=== PATIENT | male | born 1985 | race Two or more races ===

== ENCOUNTER 2019-12-06 14:20 | Outpatient (CLI) | payer OTHER | END 2019-12-06 14:24 | disposition home or self-care (01) | LOC: CERTIFICAD 14:20 | PROVIDERS: ATTEND Family Medicine | DX: Z11.1 Encounter for screening for respiratory tuberculosis (principal) ==

== ENCOUNTER → 2019-12-27 17:51 | Outpatient (CLI) | payer OTHER | END | disposition home or self-care (01) | LOC: RAD 17:51 | PROVIDERS: ATTEND Anesthesiology | DX: M25.512 Pain in left shoulder (principal) ==

== ENCOUNTER 2020-01-11 16:17 | Outpatient (CLI) | payer OTHER | END 2020-01-11 18:00 | disposition home or self-care (01) | LOC: PPH VACUNA 16:17 | DX: Z23 Encounter for immunization (principal) ==

== ENCOUNTER 2021-12-10 11:00 | Outpatient (CLI) | payer OTHER | END 2021-12-10 11:01 | disposition home or self-care (01) | LOC: LAB 11:00 | PROVIDERS: ATTEND General Practice | DX: E55.9 Vitamin D deficiency, unspecified (principal); E78.00 Pure hypercholesterolemia, unspecified; D50.9 Iron deficiency anemia, unspecified; D50.8 Other iron deficiency anemias; E08.9 Diabetes mellitus due to underlying condition without complications; E03.9 Hypothyroidism, unspecified; E56.9 Vitamin deficiency, unspecified; E63.9 Nutritional deficiency, unspecified; E11.9 Type 2 diabetes mellitus without complications; R53.81 Other malaise; N39.9 Disorder of urinary system, unspecified ==

== ENCOUNTER 2021-12-30 08:00 | Outpatient (CLI) | payer OTHER | END 2021-12-30 08:05 | disposition home or self-care (01) | LOC: PPH VACUNA 08:00 | PROVIDERS: ATTEND Emergency Medicine Pediatric Emergency Medicine | DX: Z23 Encounter for immunization (principal) ==

== ENCOUNTER 2023-01-04 09:50 | Outpatient (CLI) | payer OTHER | END 2023-01-04 10:05 | disposition home or self-care (01) | LOC: PPH VACUNA 09:50 | PROVIDERS: ATTEND Emergency Medicine Pediatric Emergency Medicine | DX: Z23 Encounter for immunization (principal) ==

== ENCOUNTER 2023-09-10 12:46 | Outpatient (CLI) | payer OTHER | END 2023-09-10 14:33 | disposition home or self-care (01) | LOC: RAD 12:46 | PROVIDERS: ATTEND Anesthesiology | DX: M79.641 Pain in right hand (principal) ==